=== PATIENT | male | born 1965 | race Caucasian/White ===

== ENCOUNTER 2025-02-15 11:28 | Observation (INO) ==
--- NOTE | 2025-02-08 12:46 | Anesthesiology Consultation ---
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 Consults Requested none History Surgery Operation Date: 02/15/25 12:15 Proposed Procedures p Transurethral Resection Prostate - Anthony Love MD Height/Weight Height: 6 ft 3 in Weight: 131.542 kg Allergies Allergy/AdvReac Type Severity Reaction Status Date / Time house dust mite Allergy Verified 02/08/25 08:52 Penicillins Allergy Hives Verified 02/08/25 08:52 Medications Home Medications Medication Instructions Recorded Confirmed Last Taken calcium 315 mg (as 2 tab PO DAILY 07/24/23 02/08/25 07/29/24 citrate)-vitamin D3 6.25 mcg (250 unit) tablet (Citracal + Vitamin D Maximum) multivitamin 1 tab PO QAM 07/24/23 02/08/25 07/29/24 meloxicam 15 mg tablet 15 mg PO DAILY PRN pain #90 tabs 04/22/24 02/08/25 07/23/24 dutasteride 0.5 mg capsule 0.5 mg PO QAM 07/28/24 02/08/25 07/29/24 magnesium glycinate 100 mg (as 100 mg PO BID 07/28/24 02/08/25 07/29/24 glycinate) tablet tamsulosin 0.4 mg capsule 0.4 mg PO QAM 07/28/24 02/08/25 07/29/24 fluocinonide 0.05 % topical cream 1 applic topical DAILY PRN itching 11/15/24 02/08/25 Unknown #120 grams phentermine 37.5 mg tablet 37.5 mg PO DAILY PRN overeating 01/13/25 02/08/25 Unknown #30 tabs fluoxetine 10 mg capsule 10 mg PO QPM 02/08/25 02/08/25 Unknown fluoxetine 20 mg capsule 20 mg PO QPM 02/08/25 02/08/25 Unknown levothyroxine 150 mcg tablet 150 mcg PO QAM 02/08/25 02/08/25 Unknown ofloxacin 0.3 % eye drops 1 drp ophthalmic (eye) QID PRN 02/08/25 02/08/25 Unknown cataract surgery 02/09/25 prednisolone acetate (PF) 1 % eye 1 drp ophthalmic (eye) QID PRN 02/08/25 02/08/25 Unknown drops,suspension cataract surgery 02/09/25 Past Medical History Medical History Cataract left eye sx scheduled for 02/09/25 Zenkers diverticulum hx, repaired 07/20/24 History of urinary incontinence Esophageal dysmotility hx; no issues since having Zenker's diverticulum surgery per pt. Hx of eczema History of hypothyroidism History of sleep study no device needed Hx of gastroesophageal reflux (GERD) History of chronic rhinitis History of BPH Anxiety and depression hx H/O radioactive iodine thyroid ablation ~2015 Past Family History Family History Mother Breast cancer Father Lung cancer Other No family history of adverse response to anesthesia No family history of bleeding disorder Denies family history of Ovarian cancer Prostate cancer Heart disease Myocardial infarction Colorectal cancer Hypertension Asthma Past Surgical History Surgical History Hx of right cataract extraction History of nasal septoplasty w/bilateral inferior turbinate reduction-07/30/24-Dr. Zhu Hx of colonoscopy (2024) History of urologic surgery varicocele removal History of esophagogastroduodenoscopy (EGD) Hx of tonsillectomy Hx of excision of Zenker's diverticulum 07/20/24, [facility] History of thumb surgery Left Thumb S/P YAG capsulotomy, right H/O detached retina repair both eyes H/O lateral meniscus repair of right knee H/O lateral meniscus repair of left knee Social History Smoking Status: Never smoker Smoking cigarettes per day: "Once in a blue gonzalez" Do You Dip or Chew Tobacco: No Hx Alcohol Use: Yes alcohol intake frequency: holidays/special occasions only Hx Substance Use: No substance use type: does not use Testing Electrocardiogram Date: 08/15/24 Findings: + SB @ (59) 1st degree AVB
[2025-02-15] MEDS: LR 15ML/HR IV SCH (11:53)
[2025-02-15] MEDS ORDERED: PROPOFOL IV EMULSION 10 MG/ML 20 ML VIAL IV ONE ×2 (12:57→13:48)
[2025-02-15] MEDS ORDERED: LIDOCAINE 2% 2 ML VIAL/AMP(20MG/ML) INFIL ONE (12:57)
[2025-02-15] MEDS ORDERED: MIDAZOLAM HCL 1 MG/ML 2ML VIAL ONE (12:58)
--- NOTE | 2025-02-15 13:12 | History & Physical Bridge Note ---
Date of Service February 15, 2025 History & Physical Bridge Note I have examined the patient, reviewed the History & Physical and in the interval since the performance of the History & Physical I have noted the following changes of clinical significance: no changes noted
[2025-02-15] MEDS: CIPROFLOXACIN / D5W 400 MG/200 ML BAG IV SCH ×2 (13:30→23:25)
[2025-02-15] MEDS ORDERED: ePHEDrine sulfate 50 MG/5 ML SYR ONE (13:51)
[2025-02-15] MEDS ORDERED: GLYCOPYRROLATE 0.2 MG/ML VIAL ONE (13:55)
[2025-02-15] MEDS ORDERED: PHENYLEPHRINE 100MCG/ML 5ML SYR ONE (14:06)
--- NOTE | 2025-02-15 14:57 | Operative Report ---
PG Post Operative Report Pre & Post Diagnosis Operation Date: 02/15/25 12:45 Pre-Op Diagnosis: Benign localized prostatic hyperplasia with lower urinary tract symptoms (LUTS), elevated prostate specific antigen Post-Op Diagnosis: Benign localized prostatic hyperplasia with lower urinary tract symptoms (LUTS), elevated prostate specific antigen I identified the patient and participated in the time-out.: Yes Procedure Operation Date: 02/15/25 12:45 Actual Procedures p Transurethral Resection Prostate(Not Applicable) - Anthony Love MD Surgeon Anthony Love MD Womens Volleyball Coach none Estimated Blood Loss 5 Findings Consistent with Post-Op Diagnosis Specimens Prostate chips Description of Procedure The patient was identified in the preoperative holding area, appropriate informed consents were reviewed and completed and the patient was transferred to the operative suite. Upon arrival, appropriate antibiotics and anesthesia were administered and the patient was placed in dorsal lithotomy position and prepped and draped in sterile fashion. Beginning case I passed a 27 Australian resectoscope with 30 degree lens and visual after repair inspection revealed healthy appearing urethra and his prostate is quite enlarged with a substantially pedunculated intravesical median lobe. The bladder itself is healthy and the ureteral orifices were identified in orthotopic position. Following my inspection I utilized a loop electrode and I began by incising the bladder neck at 5 and 7:00 to begin further development of the median lobe and allow for complete resection. I then resected the median lobe entirely. He still had a substantial amount of lateral lobe hypertrophy so I resected the left and then right lateral lobes. He had some redundant anterior tissue as well which was resected before trimming the apical tissue. I emptied all chips from the bladder and ensured that all resection was complete. Hemostasis was excellent. A 22 Australian Chong catheter was inserted with 30 cc of sterile water in the balloon. He was reversed of anesthesia and taken to the recovery room in stable condition. There were no complications. I attest to the content of the Intraoperative Record and any orders documented therein. Any exceptions are noted below.
--- NOTE | 2025-02-15 16:43 | Anesthesiology Progress Note ---
Date of Service February 15, 2025 Anesthesia Post Procedure Vital Signs Vital Signs: Temp Pulse Pulse Resp BP Pulse Ox O2 Del Method 02/15/25 16:15 66 22 136/86 95 Room Air 02/15/25 16:00 68 16 149/86 H 100 Room Air 02/15/25 15:45 65 14 130/70 99 Room Air 02/15/25 15:30 60 12 137/85 99 Room Air 02/15/25 15:10 36.5 C 60 12 134/80 97 Room Air 02/15/25 15:00 65 12 136/79 97 Room Air 02/15/25 14:50 60 14 139/80 96 Room Air 02/15/25 14:42 36.2 C L 75 14 140/70 100 Oxymask 02/15/25 11:44 36.9 C 59 L 20 151/84 H 95 Room Air O2 Flow Rate 02/15/25 16:15 02/15/25 16:00 02/15/25 15:45 02/15/25 15:30 02/15/25 15:10 02/15/25 15:00 02/15/25 14:50 02/15/25 14:42 6 02/15/25 11:44 Transfer of Care Handoff Completed per policy Notes Mental Status: alert / awake / arousable Patient Amnestic to Procedure: Yes Nausea / Vomiting: adequately controlled Pain: adequately controlled Airway Patency, RR, SpO2: stable & adequate BP & HR: stable & adequate Hydration State: stable & adequate Anesthetic Complications: no major complications apparent
[2025-02-15] MEDS ORDERED: OFLOXACIN 0.3% 75 DROPS/5 ML BTL OP PRN (17:10)
[2025-02-15] MEDS ORDERED: MELOXICAM 7.5 MG TAB PO PRN (17:10)
[2025-02-15] MEDS: SODIUM CHLORIDE 0.9% 500 ML IV SCH (17:15)
[2025-02-15] MEDS ORDERED: CLOBETASOL PROPIONATE 0.05% CREAM 15 GM TUBE TOP PRN (17:23)
[2025-02-15] MEDS ORDERED: prednisoLONE acetate 1% OP SUSP 5 ML BTL OP PRN (17:26)
[2025-02-15 19:22] VITALS: RESP 18
[2025-02-16] MEDS: LEVOTHYROXINE SODIUM 150 MCG TABLET PO SCH (06:02)
[2025-02-16 07:36] VITALS: O2SAT 95
[2025-02-16] MEDS: MULTIVITAMIN TAB PO SCH (09:13)
[2025-02-16] MEDS: MAGNESIUM OXIDE 400 MG TAB PO SCH (09:13)
[2025-02-16] MEDS: CALCIUM 600MG + VIT D 400 IU TAB PO SCH (09:13)
[2025-02-16 11:10] VITALS: BP 123/71; PULSE 75; TEMP 99.7
--- NOTE | 2025-02-16 14:18 | Urology Progress Note ---
Date of Service February 16, 2025 Assessment & Plan (1) Benign localized prostatic hyperplasia with lower urinary tract symptoms (LUTS): Plan - Pt POD#1 s/p TURP with Dr. Love - Doing well, progressing as expected - Afebrile and hemodynamically stable - Chong draining light red urine without clot - No reported pain - Plan for voiding trial now - Will reassess later this morning - Pt reassessed and was able to void following catheter removal - Stable for discharge home - Discharge instructions reviewed, all questions were answered Admission and Anticipated Discharge Date Admission Date: February 15, 2025 Subjective Patient seen at bedside this morning with Dr. Love. Awake and resting in bed on arrival. No acute distress. Feeling well. No reported pain. Tolerating diet. Chong draining light red urine without clot. Review of Systems Constitutional: as per Subjective / HPI Genitourinary: + as per Subjective / HPI Physical Exam Constitutional: no acute distress Respiratory: no respiratory distress and no labored breathing Neurologic: moves all extremities and awake Psychiatric: A+Ox3, euthymic affect Genitourinary: Chong intact and draining light red urine without clot Results & Data Vital Signs (Past 12 Hours) Vital Signs Temp Pulse Resp BP Pulse Ox O2 Del Method 02/16/25 11:07 37.6 C H 75 18 123/71 95 Room Air 02/16/25 07:35 36.5 C 56 L 18 128/77 95 Room Air 02/16/25 03:15 36.6 C 55 L 18 123/74 96 Room Air PG Care Time/CCT Total # of Minutes Spent Total Time Spent with Patient: Total time spent is greater than 50% in coordination of care (as documented) at patient's floor/unit and/or counseling patient: Coding Level of Care Code None Diagnoses Benign localized prostatic hyperplasia with lower urinary tract symptoms (LUTS) N40.1
--- NOTE | 2025-02-16 14:22 | Discharge Summary ---
Date of Service February 16, 2025 Admission HPI Per Admitting Provider 60-year-old male with BPH with lower urinary tract symptoms who presented for transurethral resection of the prostate with Dr. Love Admission Exam Per Admitting Provider Constitutional well developed and well nourished Neck neck nontender Respiratory normal respiratory effort; no respiratory distress and does not use accessory muscles Cardiovascular Rate/Rhythm: regular rate Vessels: radial pulses present Extremities: no edema Gastrointestinal (Abdomen) Inspection/Auscultation: abdomen normal to inspection Percussion/Palpation: abdomen soft; abdomen nontender and no guarding Musculoskeletal Head/Neck/Chest: normocephalic and head atraumatic Extremities: extremities normal to inspection Skin no rashes and no lesions Trauma: no evidence of skin trauma Neurologic awake; not obtunded Speech / Cognition: normal speech Motor/Sensory: no tremor Psychiatric Orientation: alert and oriented x 3 Genitourinary no CVA tenderness Lymphatic no lymphadenopathy Principal Diagnosis BPH with lower urinary tract symptoms Discharge Exam Constitutional no acute distress Respiratory no respiratory distress and no labored breathing Musculoskeletal Head/Neck/Chest: normocephalic Skin no rashes, warm and dry Neurologic moves all extremities and awake Psychiatric A+Ox3, euthymic affect Discharge Data Allergies Allergy/AdvReac Type Severity Reaction Status Date / Time house dust mite Allergy Verified 02/15/25 11:55 Penicillins Allergy Hives Verified 02/15/25 11:55 Procedures Performed Operation Date: 02/15/25 12:45 Actual Procedures p Transurethral Resection Prostate(Not Applicable) - Anthony Love MD Hospital Course (1) Benign localized prostatic hyperplasia with lower urinary tract symptoms (LUTS): Plan 60-year-old male admitted status post transurethral resection of the prostate with Dr. Love. Patient tolerated procedure well. No acute issues postoperatively. Remained afebrile and hemodynamically stable. Chong catheter removed on postop day #1 for void trial. Patient was able to void following catheter removal. No reported pain. Ambulated without issue. Tolerated diet. He was discharged home on postop day #1 in stable condition. Discharge instructions were reviewed and all questions were answered. Total Time Total Time Spent Total Time Spent (In Minutes): 15 Discharge Plan Discharge Items Patient Disposition: Home - Self-Care Reason For Visit: BPH with Lower Urinary Tract Symptoms, Stress Inco Discharge Diagnosis: BPH with lower urinary tract symptoms Condition on Discharge: Good Activity: Per Instructions section Non-emergency contact: Surgeon and Urologist Call non-emergency contact if: you have any medication questions, your symptoms worsen, your pain is not controlled and you have a fever Follow-up/Referrals: Ramesh Rodriguez CRNP [Primary Care Provider] - Anthony Love MD [Physician] - Diet: Regular Addtl Attending Provider Instructions: Please take all medications as prescribed and keep all follow-ups as scheduled. Please call our office at [phone] with any questions, concerns or need to reschedule appointments for any reason. We are happy to assist you. Tips for your recovery at home: Dont be alarmed by brownish or reddish blood or clots in your urine. This is a result of the procedure. This may occur off and on for weeks to months after the procedure but should continue to improve. Drink plenty of fluids during the day (enough to keep your urine very light colored). This will help keep a healthy flow of urine. Do not lift >25 lbs until your followup Avoid constipation. Please use a stool softener (Colace) for the first two weeks after your procedure if needed. Be sure to finish the antibiotics as prescribed. When to call [facility] at [phone]: Your urine contains heavy blood clots or you are unable to urinate You are constantly leaking urine Fever of 101F or higher, chills, nausea, or vomiting Your pain is not relieved with medication Pending Studies at Discharge: Yes (pathology) Stand-Alone Forms: My [facility], Smoking Cessation Medications and DC Order Prescriptions: Continued phentermine 37.5 mg tablet 37.5 mg PO DAILY PRN (Reason: overeating) Qty: 30 0RF Rx Instructions: must administer 30 minutes before or 1-2 hours after breakfast ciprofloxacin HCl 500 mg tablet 500 mg PO BID 3 Days Qty: 6 0RF meloxicam 15 mg tablet 15 mg PO DAILY PRN (Reason: pain) Qty: 90 1RF fluocinonide 0.05 % cream 1 applic topical DAILY PRN (Reason: itching) Qty: 120 3RF calcium citrate-vitamin D3 [Citracal + D Maximum] 315 mg-6.25 mcg (250 unit) tablet 2 tab PO DAILY multivitamin Tablet 1 tab PO QAM magnesium glycinate 100 mg Tablet 100 mg PO BID tamsulosin 0.4 mg capsule 0.4 mg PO QAM dutasteride 0.5 mg capsule 0.5 mg PO QAM ofloxacin 0.3 % Drops 1 drp OPHTHALMIC (EYE) QID PRN (Reason: cataract surgery 02/09/25) Patient Comments: will continue for 1 week after cataract surgery as well prednisolone acetate (PF) 1 % Drops,Suspension 1 drp OPHTHALMIC (EYE) QID PRN (Reason: cataract surgery 02/09/25) Patient Comments: to continue for 1 week after cataract sx also levothyroxine 150 mcg tablet 150 mcg PO QAM fluoxetine 10 mg capsule 10 mg PO QPM Patient Comments: noon Rx Instructions: Add to Fluoxetine 20 mg to = 30 mg. fluoxetine 20 mg capsule 20 mg PO QPM Patient Comments: noon Discharge Orders: Discharge Order (Routine); Ordered 02/16/25 Ordered By: Aileen Medina Admission Data Admit Date/Time: 02/15/25 14:54 Attending Provider: Anthony Love Admit Provider: Anthony Love Primary Care Provider: Ramesh Rodriguez Other Interventions: Discharge Summary Assessment (RN) Last Done: 02/16/25 11:59 Coding Level of Care Code 52629 IN/OBS DISCH 30 MIN/LESS Diagnoses Benign localized prostatic hyperplasia with lower urinary tract symptoms (LUTS) N40.1
== END 2025-02-16 12:53 | disposition home or self-care (01) ==
LOC: PACUINP 11:28 → ASU 11:28 → 3E 17:04